=== PATIENT | male | born 1955 | race Caucasian/White ===

== ENCOUNTER 2016-11-12 07:30 | Inpatient (IN) | payer BC ==
--- NOTE | 2016-11-06 21:25 | HP ---
HISTORY AND PHYSICAL: DATE OF ADMISSION/SURGERY: 11/12/16 DATE OF OFFICE VISIT: 11/06/16 SURGEON: Lubna Avila MD PROCEDURE: Left total hip arthroplasty. CHIEF COMPLAINT: Left hip pain. HISTORY OF PRESENT ILLNESS: Mr. Davenport is a 60-year-old gentleman with complaints of left hip pain. He has failed conservative management and has elected to proceed with a left total hip arthroplasty, which is scheduled for . PAST MEDICAL HISTORY: Osteoarthritis. PAST SURGICAL HISTORY: Tonsillectomy. CURRENT MEDICATIONS: 1. Adderall. 2. Bulger. ALLERGIES: No known drug allergies. FAMILY HISTORY: Diabetes and heart disease. SOCIAL HISTORY: He is a 60-year-old gentleman. He is . 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 He does not smoke, use drugs. Uses occasional alcohol. REVIEW OF SYSTEMS: A complete 14-point review of systems was reviewed with the patient. All was negative or noncontributory. PHYSICAL EXAMINATION GENERAL: He is well developed, well nourished, in no acute distress. VITAL SIGNS: He stands 5 feet 8 inches tall, weighs 190 pounds. His blood pressure is 115/90. His heart rate is 100. HEENT: Normocephalic, atraumatic. NECK: Supple. No palpable lymph nodes. Trachea is midline. PULMONARY: Lungs are clear to auscultation bilaterally. No wheezes, rhonchi, or rales. CARDIO: Regular rate and rhythm. Strong S1, S2. No murmurs, gallops, or rubs. No peripheral edema. ABDOMEN: Soft, nontender, nondistended. NEUROLOGICAL: He is alert and oriented x3. Cranial nerves II through XII are intact. MUSCULOSKELETAL: Left lower extremity: The skin is intact. He walks with an antalgic type gait favoring his left hip. He has limited range of motion with internal and external rotation of the left hip, 2+ dorsalis pedis pulses. His lower extremity muscle group strengths are intact at 5/5. ASSESSMENT AND PLAN: Mr. Davenport is a 60-year-old gentleman with complaints of left hip pain. He has failed conservative management and has elected to proceed with a left total hip arthroplasty, which is scheduled for 11/12/[address] Avila discussed the risks and benefits of the surgery at today's visit and all of his questions were answered. Percocet, Colace, and Coumadin were sent to his pharmacy for postoperative pain control and DVT prophylaxis. He will see Dr. Avila back in 10 to 14 days after the surgery. KASANDRA LEMONS [id number]/[facility] #: [id number] MARYANNE
--- NOTE | 2017-01-03 15:33 | HP ---
HISTORY AND PHYSICAL: DATE OF ADMISSION/SURGERY: 01/07/17 DATE OF OFFICE VISIT: 01/03/17 SURGEON: Lubna Avila MD PROCEDURE: Left total hip arthroplasty. CHIEF COMPLAINT: Left hip pain. HISTORY OF PRESENT ILLNESS: Mr. Davenport is a 61-year-old gentleman with complaints of left hip pain secondary to osteoarthritis. He has failed conservative management and has elected to proceed with a left total hip arthroplasty, which is scheduled for 01/07/[address] Avila. PAST MEDICAL HISTORY: Osteoarthritis. PAST SURGICAL HISTORY: Tonsillectomy. CURRENT MEDICATIONS: 1. Adderall. 2. Melvern. ALLERGIES: None. FAMILY HISTORY: Diabetes and heart disease. SOCIAL HISTORY: He is a 61-year-old gentleman. He is . He does not smoke or use drugs. He uses occasional alcohol. REVIEW OF SYSTEMS: A complete 14-point review of systems was reviewed with the patient, all was negative or noncontributory. PHYSICAL EXAMINATION GENERAL: He is well-developed, well-nourished, in no acute distress. VITAL SIGNS: He stands 5 feet 8 inches tall, weighs 190 pounds. His blood pressure is 137/81 and his heart rate 80. HEENT: Normocephalic, atraumatic. NECK: Supple. No palpable lymph nodes. Trachea is midline. PULMONARY: The lungs are clear to auscultation bilaterally. No wheezes, rhonchi, or rales. CARDIO: Regular rate and rhythm. Strong S1, S2. No murmurs, gallops, or rubs. ABDOMEN: Soft, nontender, and nondistended. MUSCULOSKELETAL: Left lower extremity, the skin is intact. He has limited range of motion with internal and external rotation of the left hip. His lower extremity muscle group strengths are intact at 5/5. He has 2+ dorsalis pedis pulses and intact sensation. NEUROLOGICAL: He is alert and oriented x3. Cranial nerves II through XII are intact. ASSESSMENT AND PLAN: Mr. Davenport is a 61-year-old gentleman with continued complaints of left hip pain. He has failed conservative management and has elected to proceed with the left total hip arthroplasty, rescheduled for with Dr. Avila. Dr. Avila discussed the risks and the benefits of the surgery at today's visit and all of his questions were answered. Coumadin, Percocet, and Colace were sent to his pharmacy for postoperative pain control and DVT prophylaxis. He will see Dr. Avila back 2 weeks after the surgery. KASANDRA LEMONS [id number]/[facility] #: [id number] MTDPrimo
[2017-01-07] MEDS ORDERED: Famotidine IV* 10 MG/ML 2 ML (20 mg) IV ONE (06:00)
[2017-01-07] MEDS ORDERED: Buffered Lidocaine 1% SYR 3ML* 3 ML/SYR SYRINGE INTRADERM ONE (06:00)
[2017-01-07] MEDS ORDERED: ceFAZolin 2 GM PREMIX(*) 2 GM/50 ML BAG IVPB ONE (06:08)
[2017-01-07] MEDS ORDERED: Famotidine IV* 10 MG/ML 2 ML (20 mg) ONE (06:08)
[2017-01-07] MEDS ORDERED: fentaNYL* 50 MCG/ML 2 ML VIAL (100 MCG VIAL) ONE (07:27)
[2017-01-07] MEDS ORDERED: KETAMINE HCL* 50 MG/ML 10 ML VIAL ONE (07:27)
[2017-01-07] MEDS ORDERED: Midazolam* 1 MG/ML 5 ML VIAL (5 MG) ONE (07:28)
[2017-01-07] MEDS ORDERED: Morphine PF AMP (0.5MG/ML)* 5 MG/10 ML AMP ONE (07:28)
[2017-01-07] MEDS ORDERED: Dexamethasone IV* 4 MG/ML 1 ML (4 MG) ONE (08:15)
[2017-01-07] MEDS ORDERED: Lidocaine 2% PF * 5 ML VIAL ONE (08:15)
[2017-01-07] MEDS ORDERED: Ondansetron INJ* 2 MG/ML VIAL ONE (08:15)
[2017-01-07] MEDS ORDERED: Propofol* 10 MG/ML 20 ML BTL IV PUSH ONE ×2 (08:15→09:10)
[2017-01-07] MEDS ORDERED: Ketorolac INJ* 30 MG/ML 1 ML VIAL ONE (08:15)
[2017-01-07] MEDS ORDERED: DiMENhydriNATE IV* 50 MG/ML VIAL IV PUSH PRN (08:25)
[2017-01-07] MEDS ORDERED: Acetaminophen TAB* 325 MG PO PRN ×2 (08:25→09:55)
[2017-01-07] MEDS ORDERED: Gabapentin CAP(*) 300 MG PO ONE (08:26)
[2017-01-07] MEDS ORDERED: EPHEDrine (Pressors)* 50 MG/ML VIAL ONE (08:32)
[2017-01-07] MEDS ORDERED: Nalbuphine* 20 MG/ML 1 ML VIAL IV PRN (08:41)
[2017-01-07] MEDS ORDERED: Naloxone* 0.4 MG/ML 1 ML VIAL IV PRN (08:41)
[2017-01-07] MEDS ORDERED: oxyCODONE/Acetamin 5/325 MG* TAB PO PRN ×2 (08:41→09:55)
[2017-01-07] MEDS ORDERED: Ondansetron INJ* 2 MG/ML VIAL IV PRN (08:41)
[2017-01-07] MEDS ORDERED: Ibuprofen TAB* 600 MG PO SCH (09:00)
--- NOTE | 2017-01-07 09:16 | RAD ---
Indication: Left hip bipolar arthroplasty Single image of the pelvis and left hip demonstrates femoral reamer and sizing of the left hip prosthesis. IMPRESSION: Intraoperative control films for left hip replacement.
[2017-01-07] MEDS ORDERED: Gabapentin CAP(*) 300 MG ONE (09:53)
[2017-01-07] MEDS ORDERED: Bisacodyl SUPP* 10 MG SUPP PR PRN (09:55)
[2017-01-07] MEDS ORDERED: Ondansetron TAB* 4 MG PO PRN (09:55)
[2017-01-07] MEDS ORDERED: diPHENhydraMINE IV* 50 MG/ML 1 ml VIAL (BENADRYL) IV PRN (09:55)
[2017-01-07] MEDS ORDERED: oxyCODONE TAB* 5 MG TAB PO PRN (09:55)
[2017-01-07] MEDS ORDERED: Polyethylene Glycol 3350* 17 GM PACKET PO PRN (09:55)
[2017-01-07] MEDS ORDERED: Morphine INJ* 2 MG/ML 1 ML SYRINGE IV PRN (09:55)
[2017-01-07] MEDS ORDERED: ceFAZolin 1 GM in Dextrose (*) 1 GM/50 ML BAG IVPB SCH (10:00)
[2017-01-07] MEDS ORDERED: DiMENhydriNATE IV* 50 MG/ML VIAL ONE (10:23)
[2017-01-07] MEDS ORDERED: HYDROmorphone* 1 MG/ML 1 ML SYR ONE (10:47)
[2017-01-07] MEDS: HYDROmorphone* 1 MG/ML 1 ML SYR IV PRN ×3 (10:48→11:30)
--- NOTE | 2017-01-07 10:51 | RAD ---
INDICATION: Left total hip replacement COMPARISON: Left hip September 23, 2016 TECHNIQUE: AP and frog-leg imaging of the left hip was performed FINDINGS: Bones: There is left hip arthroplasty. Both femoral and tibial components appear well seated. Joint spaces: Left hip arthroplasty. Other: None IMPRESSION: INTERVAL LEFT HIP ARTHROPLASTY. NO EVIDENCE OF HARDWARE FAILURE
--- NOTE | 2017-01-07 10:53 | RAD ---
INDICATION: Left hip arthroplasty COMPARISON: Left hip September 23, 2016 TECHNIQUE: A single AP view of the pelvis is submitted. FINDINGS: Osseous structures: There is left hip arthroplasty. The prosthesis appears well seated. There is moderate osteoarthritis about the right hip appearing unchanged. SI joints and symphysis: Intact Soft tissues: Negative Other: None IMPRESSION: LEFT HIP ARTHROPLASTY. MODERATE OSTEOARTHRITIS RIGHT HIP
[2017-01-07] MEDS ORDERED: oxyCODONE/Acetamin 5/325 MG* TAB ONE (11:03)
[2017-01-07] MEDS: oxyCODONE/Acetamin 5/325 MG* TAB PO PRN ×2 (11:04→11:05)
[2017-01-07] MEDS: ceFAZolin 1 GM in Dextrose (*) 1 GM/50 ML BAG IVPB SCH ×2 (14:52→22:12)
[2017-01-07] MEDS: Ibuprofen TAB* 600 MG PO SCH ×2 (15:29→21:33)
[2017-01-07] MEDS ORDERED: Warfarin TAB(*) 6 MG PO ONE (17:00)
[2017-01-07] MEDS: Docusate CAP* 100 MG PO SCH (21:32)
[2017-01-08] MEDS: oxyCODONE/Acetamin 5/325 MG* TAB PO PRN ×5 (03:26→21:33)
[2017-01-08] MEDS: ceFAZolin 1 GM in Dextrose (*) 1 GM/50 ML BAG IVPB SCH (05:44)
[2017-01-08 05:59] LABS: Hematocrit 35 % (42-52)
[2017-01-08 06:25] LABS: BUN/Creatinine Ratio 18.3 (8-20); Calcium 8.5 mg/dL (8.6-10.3); EGFR African American 122.8 (>60); EGFR Non-African American 95.5 (>60); Potassium 4.1 mmol/L (3.5-5.0)
--- NOTE | 2017-01-08 07:40 | PN ---
Progress Note - Progress Note SOAP: Subjective: Pt. is alert, pain is controlled. Objective: LLE - thigh soft, dressing c/d/i. distally +df/pf, full sens lt, 2+ dp pulse. Vital Signs: Temp Pulse Resp BP Pulse Ox 98.3 F 67 16 107/67 95 01/08/17 04:00 01/08/17 04:00 01/08/17 05:26 01/08/17 04:00 01/08/17 04:00 Laboratory Results - last 24 hr 01/08/17 01/08/17 01/08/17 05:46 05:46 05:46 Hgb 12.0 L Hct 35 L INR (Anticoag Therapy) 1.09 Sodium 131 L Potassium 4.1 Chloride 103 Carbon Dioxide 23 Anion Gap 5 BUN 15 Creatinine 0.82 Est GFR ( Amer) 122.8 Est GFR (Non-Af Amer) 95.5 BUN/Creatinine Ratio 18.3 Glucose 117 H Calcium 8.5 L Assessment: 61 yo M pod 1 s/p LTHA Plan: wbat with post hip precautions pt/ot plan home with vns tomorrow 8 mg coumadin tonight with lovenox bridge
--- NOTE | 2017-01-08 08:14 | OP ---
OPERATIVE REPORT: DATE OF OPERATION: 01/07/17 DATE OF : 55 SURGEON: Lubna Avila MD LICENSED REAL ESTATE BROKER: KASANDRA Flaherty Ms. was used throughout the procedure for preparation of the leg, retraction, manipulation of the leg, and wound closure. ANESTHESIOLOGIST: Yamileth Hall MD ANESTHESIA: Spinal. PRE-OP DIAGNOSIS: Severe end-stage degenerative osteoarthritis of the left hip joint. POST-OP DIAGNOSIS: Severe end-stage degenerative osteoarthritis of the left hip joint. OPERATIVE PROCEDURE: Left total hip arthroplasty. COMPLICATIONS: None. ESTIMATED BLOOD LOSS: 200 cc. SPECIMEN: Femoral head and acetabular reaming, sent to pathology. HARDWARE USED: This is uncemented Frances total hip hardware. A 56 Tritanium Cluster Hole Shell wa s used along with a 30-mm cancellous bone screw. For the femur, an Accolade TMZF, size 4.5 with a 1 32-degree neck angle. For the femoral head, a 36, -2.5 Biolox delta ceramic V40 femoral head. BRIEF HISTORY/INDICATIONS: Mr. Davenport is a 61-year-old gentleman with years of increasingly severe le ft hip pain. Radiographs showed severe end-stage arthritis with [id number] contact. He failed co nservative treatment with antiinflammatories, pain medications, physical therapy, and intraarticular injection. He elected to undergo left total hip arthroplasty due to continued pain and decreased q uality of life. Informed consent was obtained from the patient. He understood the risks of the pro cedure included, but were not limited to bleeding, infection, damage to nearby structures, continued pain, need for further surgery, intraoperative fracture, nerve palsy, hardware failure or loosening , dislocation, leg length discrepancy, stroke, heart attack, blood clot, and . He wished to pr oceed. INTRAOPERATIVE FINDINGS: Intraoperatively, the patient was noted to have severe end-stage arthritis with complete loss of cartilage in the femoral head and acetabulum. He did have the anterior-infer ior osteophyte formation along the acetabulum. DESCRIPTION OF PROCEDURE: Mr. Dalton was identified in the preanesthesia unit. His left lower extremi ty was marked as the correct operative side. Informed consent was signed and placed in the chart. The patient was taken to the operating room and placed under spinal anesthesia. A Pereira catheter wa s placed. The patient was placed in the right lateral decubitus position on the peg board. All bon y prominences were well padded. The lower extremity was prepped and draped in the usual sterile fas hion. Preop time-out was made to correctly identify the patient, side, and site. Appropriate perio perative antibiotics were given within 1 hour of incision. A 12 cm posterior hip incision was made with a 10 blade and carried down to the lateral fascial laye r. Lateral fascial layer was incised in line with the skin incision. A Charnley retractor was plac ed. The piriformis and conjoined tendons were identified. These were elevated off the posterolater al femur using electrocautery and tagged with two #5 Ethibond's. Electrocautery was then used to ma ke a standard posterolateral capsular flap and this was also tagged with two #5 Ethibond's. The hip was carefully dislocated. Lesser troch to the center of the femoral head measured 55 mm. A n oscillating saw was used to make the appropriate femoral neck cut. The femoral head was sent to p athology. The femur was carefully retracted anteriorly. After appropriate placement of retractors, the acetab ulum was easily visualized. A long-handled knife was used to remove any remaining labrum from the a cetabular rim. The acetabulum was sequentially reamed up to a size 55. A good bleeding bone bed wa s obtained. The 55 trial had excellent fit. A Tritanium hemispherical cluster hole shell, size 56 E was chosen. This was impacted into the acetabulum without difficulty. Appropriate abduction angle and anteversion were chosen. There was good stability of the cup. One 30 mm cancellous bone screw was placed in the superoposterior quadrant for extra stability. A Trident X3 0 degree polyethylene insert 36C was chosen as the final insert. This was locked into position in the acetabulum. Stability of the insert was checked and rechecked and noted to be stabl e. Attention was next turned to preparation of the proximal femur. A canal finder was used to enter th e proximal femur. The femoral canal was then sequentially broached up to a size 4.5. The 4.5 broac h had good fit and appropriate anteversion. A 132- degree neck trial with a 36 +0 femoral head tria l was chosen. Then hip was reduced and taken through range of motion. The hip was stable in all po sitions. There was appropriate leg lengths and good soft tissue tension. The hip was carefully dislocated. All trials were removed. Final implant was an Accolade TMZF, siz e 4.5 with a 132-degree neck. This was impacted into the femoral canal without difficulty. There w as good stability. The stem did sit up approximately 2 mm. The Biolox delta ceramic V40 femoral he ad was chosen 36, -2.5. This was impacted onto the femoral neck. Lesser troch to the center of the femoral head final measurement was 55 mm. The hip was reduced and taken through a range of motion. The hip was stable in all positions. The hip was copiously irrigated with sterile saline. Previously tagged capsule and tendons were marc pproximated to the posterolateral femur through 2 trochanteric drill holes. The lateral fascial lay er was closed using the interrupted #1 Vicryl's. The rest of the incision was closed in a layered f ashion using 0 and 2-0 Vicryl's. Skin was closed using running 3-0 Monocryl suture and Dermabond. S terile Adaptic, 4x4s, and paper tapes were used to cover the incision. The patient's anesthesia was reversed without difficulty. He was taken to the PACU in stable condit ion. Intended weightbearing will be weightbearing as tolerated with posterior hip precautions. Int ended DVT prophylaxis will be Coumadin with a Lovenox bridge. [id number]/[facility] #: [id number]
[2017-01-08] MEDS: Enoxaparin(*) 30 MG/0.3 ML SYR SUBCUT SCH (08:27)
[2017-01-08] MEDS: Amphetamine MIXED SALT TAB* 10 MG TAB PO SCH ×2 (08:28→09:13)
[2017-01-08] MEDS: Docusate CAP* 100 MG PO SCH ×2 (08:28→21:33)
[2017-01-08] MEDS ORDERED: Warfarin TAB(*) 4 MG PO ONE (17:00)
[2017-01-08] MEDS: Magnesium Hydroxide LIQ* 30 ML UDC PO PRN (21:32)
[2017-01-09] MEDS: oxyCODONE/Acetamin 5/325 MG* TAB PO PRN ×4 (01:47→13:39)
[2017-01-09] MEDS: Magnesium Hydroxide LIQ* 30 ML UDC PO PRN (05:56)
[2017-01-09 06:36] LABS: Hematocrit 35 % (42-52); Hemoglobin 11.8 g/dl (14.0-18.0)
[2017-01-09] MEDS: Enoxaparin(*) 30 MG/0.3 ML SYR SUBCUT SCH (08:17)
[2017-01-09] MEDS: Docusate CAP* 100 MG PO SCH (08:18)
[2017-01-09] MEDS: Amphetamine MIXED SALT TAB* 10 MG TAB PO SCH (08:19)
--- NOTE | 2017-01-09 08:27 | PN ---
Progress Note - Progress Note SOAP: Subjective: 61 y/o male s/p L ASHLEIGH 01/07/[address] Avila. Patient reports feeling well, working well with PT, would like for D/C today. VSS, afebrile overnight. Objective: [General- Well appearing, NAD MSK- Incision c/d/i, no drainage noted, minimal erythema around incision. + DF/ PF L LE. Easily rises from chair to standing position. ] Vital Signs Temp 98.0 F 01/09/17 07:47 Pulse 67 01/09/17 07:47 Resp 16 01/09/17 08:00 BP 122/61 01/09/17 07:47 Pulse Ox 95 01/09/17 07:47 Intake & Output 01/08/17 01/09/17 01/09/17 18:59 06:59 18:59 Intake Total 1750 1800 Output Total 1200 1550 Balance 550 250 Intake: IV Fluids 1030 LR 1030 IVPB 55 ABX - CEFAZOLIN 55 Oral 665 1800 Output: Urine 1200 1550 Laboratory Results - last 24 hr 01/09/17 01/09/17 05:31 05:31 Hgb 11.8 L Hct 35 L INR (Anticoag Therapy) 1.48 H Assessment: [61 y/o male s/p L ASHLEIGH 01/07/[address] Avila] Plan: [- D/C today to home after PT - Lovenox today, coumadin dosing - Follow up with Dr. Avila within 10 days ] Active Medications Generic Name Dose Route Start Last Admin Trade Name Freq PRN Reason Stop Dose Admin Acetaminophen 650 mg 01/07/17 09:55 Tylenol Tab* PO Q4H PRN PAIN OR TEMPERATURE Amphetamine/Dextroamphetamine 30 mg 01/08/17 09:00 01/09/17 08:19 Adderall Tab* PO Not Given QAM CASI Bisacodyl 10 mg 01/07/17 09:55 Dulcolax Supp* MI DAILY PRN constipation Diphenhydramine HCl 12.5 mg 01/07/17 09:55 01/07/17 19:46 Benadryl Iv* IV 12.5 mg Q6H PRN Administration PRURITIS Docusate Sodium 100 mg 01/07/17 21:00 01/09/17 08:18 Colace Cap* PO 100 mg BID CASI Administration Enoxaparin Sodium 30 mg 01/08/17 08:00 01/09/17 08:17 Lovenox(*) SUBCUT 30 mg Q24H CASI Administration Lactated Ringer's 1,000 mls @ 100 mls/hr 01/07/17 10:00 01/07/17 22:12 Lactated Ringers 1000 Ml Bag* IV 100 mls/hr PER RATE CASI Administration Lactulose 30 ml 01/07/17 09:55 Lactulose* PO Q6H PRN constipation Magnesium Hydroxide 30 ml 01/07/17 09:55 01/09/17 05:56 Milk Of Magnesia Liq* PO 30 ml Q6H PRN Administration constipation Morphine Sulfate 2 mg 01/07/17 09:55 Morphine Inj (Syringe)* IV Q2H PRN PAIN Ondansetron HCl 4 mg 01/07/17 09:55 Zofran Tab* PO Q6H PRN NAUSEA Oxycodone HCl 10 mg 01/07/17 09:55 Roxycodone Tab* PO Q4H PRN SEVERE PAIN Oxycodone/Acetaminophen 1 tab 01/07/17 09:55 Percocet 5/325 Tab* PO Q3H PRN PAIN - MODERATE Oxycodone/Acetaminophen 2 tab 01/07/17 09:55 01/09/17 05:56 Percocet 5/325 Tab* PO 2 tab Q3H PRN Administration PAIN - MODERATE Pharmacy Profile Note 1 note 01/07/17 17:00 01/08/17 16:58 Coumadin Daily Reminder* FOLLOW UP 1 note 1700 CASI Administration Polyethylene Glycol/Electrolytes 17 gm 01/07/17 09:55 Miralax* PO DAILY PRN Constipation
[2017-01-09 15:40] VITALS: BP 111/70
--- NOTE | 2017-01-09 23:23 | DS ---
DISCHARGE SUMMARY: DATE OF ADMISSION: 01/07/17 DATE OF DISCHARGE: 01/09/17 ATTENDING PROVIDER: Lubna Avila MD (DICTATED BY KASANDRA DESIR) CHIEF COMPLAINT: 1. Left hip osteoarthritis. 2. Osteoarthritis, generalized. DISCHARGE DIAGNOSES: 1. Left total hip arthroplasty. 2. Generalized osteoarthritis. PROCEDURE: 1. Left total hip arthroplasty. CONSULTATIONS: 1. Physical Therapy. 2. Occupational Therapy. BRIEF HISTORY: Mr. Davenport is a very pleasant 61-year-old gentleman with severe end- stage osteoarthritis of the left hip, who failed conservative treatment and elected to undergo a left total hip arthroplasty on 01/07/[address] Lubna Avila. HOSPITAL COURSE: Mr. Davenport was admitted to [facility] on 01/07/17 where he underwent a left total hip arthroplasty. Postoperatively, he recovered on the surgical short-stay unit. On postoperative day 2, his Pereira was removed and the patient was voiding on his own without difficulty. He advanced to regular diet and his pain was controlled with p.o. Percocet. He was restarted on his home medications. His labs and vital signs remained stable. He was able to weight bear as tolerated on the left lower extremity and was advancing appropriately with physical therapy and occupational therapy. His DVT prophylaxis was managed with Lovenox and Coumadin. By postoperative day 2, he was orthopedically and medically stable for discharge to go home with home services. PHYSICAL EXAMINATION: General: Well-appearing, no acute distress, alert and oriented x3. Vital Signs: Temperature 98.0, pulse 67, respirations 16, blood pressure 122/61, pulse oxygenation 95% on room air. Left extremity shows the incision is clean, dry, and intact with no signs of drainage or erythema around the incision site. Minimal ecchymosis. The patient able to go from a sitting to standing position without difficulty. Neurovascularly intact. Positive dorsiflexion and plantar flexion, left lower extremity. DIAGNOSTIC STUDIES/LAB DATA: On the date of discharge, H and H of 11.8 and 35 with an INR of 1.48. Radiographs: Postoperative radiograph of the left hip demonstrated a left total hip arthroplasty and satisfactory replacement. DISCHARGE MEDICATIONS: 1. Adderall 1 tablet p.o. q.a.m. 2. Colace 100 mg p.o. b.i.d. 3. Percocet 5/325 mg 1 to 2 tablets every 3 hours as needed for pain. 4. Coumadin 2 mg tablets, 1 to 3 tablets as directed at 5 p.m. per physician orders. CONDITION ON DISCHARGE: Stable. DISCHARGE INSTRUCTIONS: Mr. Davenport is a very pleasant 61-year-old gentleman, postoperative day 2 status post left total hip arthroplasty, which was uncomplicated. He is orthopedically and medically stable for discharge to go home with home services. His labs and vital signs are stable. He will restart his home medications. He will take 6 mg of Coumadin night, 6 mg on Friday night, and 4 mg on Friday and Friday nights, and will have a recheck of his INR on Friday. He will have INR draws on Mondays and with visiting home nurse services. He will remain weight-bearing as tolerated on the left lower extremity. He will have home physical therapy twice a week. He will take Percocet as needed for pain control. He will take Colace up to 3 times a day for constipation. He will follow up with Dr. Avila in approximately 10 to 14 days for an incision check and suture removal. He was instructed to go immediately to the ER should he develop chest pain or shortness of breath. Should he develop fever, increasing pain, or redness, he is to call the office immediately. KASANDRA DESIR [id number]/[facility] #: [id number] MTDPrimo
== END 2017-01-09 16:20 | disposition home health service (06) | DRG 301 ==
LOC: AA 01-07 06:10 → SSU 01-07 11:58
PROVIDERS: ADMIT Orthopaedic Surgery Adult Reconstructive Orthopaedic Surgery; ATTEND Orthopaedic Surgery Adult Reconstructive Orthopaedic Surgery
PROC: 0SRB04A Replacement of Left Hip Joint with Ceramic on Polyethylene Synthetic Substitute, Uncemented, Open Approach (ICD-10-PCS; principal; 2017-01-07 07:30)
DX: M16.12 Unilateral primary osteoarthritis, left hip (principal); F41.9 Anxiety disorder, unspecified; M15.9 Polyosteoarthritis, unspecified; M25.752 Osteophyte, left hip
CPT/HCPCS: 36415; 71020; 72170; 80048; 85014; 85018; 85610; 88304; 88311; 94760; A9270-GY; C1713; C1776; J0690; J1100; J1170; J1200; J1240; J1650; J1885; J2250; J2300; J2405; J2704; J3010

== ENCOUNTER 2022-06-27 07:30 | Observation (INO) ==
[~2022-06-27 07:30] MED LIST: Buffered Lidocaine 1% SYRIN 1 ml INTRADERM ONE; Lactated Ringers 1000 ml BAG 1,000 ML IV SCH
[2022-06-27] MEDS ORDERED: Ketamine HCL 50 mg/ml 10 ml VIAL (500 MG) ONE (10:11)
[2022-06-27] MEDS ORDERED: Lidocaine 2% PF 5 ML VIAL ONE (10:12)
[2022-06-27] MEDS ORDERED: Propofol 10 MG/ML 20 ML BTL ONE ×2 (10:12→10:47)
[2022-06-27] MEDS ORDERED: ceFAZolin 2 GM PREMIX 2 GM/50 ML BAG ONE (10:57)
[2022-06-27] MEDS ORDERED: Ondansetron 4 mg VIAL 2 MG/ML 2 ml VIAL ONE ×2 (11:16→13:40)
[2022-06-27] MEDS ORDERED: Ondansetron 4 mg VIAL 2 MG/ML 2 ml VIAL IV PRN ×2 (12:08→14:34)
[2022-06-27] MEDS ORDERED: Naloxone 0.4 mg VIAL 0.4 mg/ml 1 ml VIAL IV PRN (12:08)
[2022-06-27] MEDS ORDERED: Acetaminophen IV 1 GM/100ML 1,000 MG/100 ML BAG IV PRN (12:08)
[2022-06-27] MEDS ORDERED: fentaNYL 100 mcg/2 ml 50 MCG/ML VIAL IV PRN (12:08)
[2022-06-27] MEDS ORDERED: ROPIVACAINE 5 MG/ML 30 ML BTL (0.5%) ONE (12:39)
[2022-06-27] MEDS ORDERED: Midazolam 5 mg/5 ml VIAL 1 mg/ml 5 ml VIAL (5 mg) ONE (12:51)
[2022-06-27] MEDS ORDERED: Sterile Water for Inj 10 ML ONE (13:14)
[2022-06-27] MEDS ORDERED: Glycopyrrolate IV 0.2 MG/ML 1 ML VIAL ONE (13:29)
[2022-06-27] MEDS ORDERED: Phenylephrine 40 mcg/mL 10mL (400mcg) SYRINGE ONE (13:30)
[2022-06-27] MEDS ORDERED: Acetaminophen IV 1 GM/100ML 1,000 MG/100 ML BAG IV ONE (13:40)
[2022-06-27] MEDS ORDERED: Lactulose 30 ml UDC PO PRN (14:34)
[2022-06-27] MEDS ORDERED: Morphine 2 MG/ML SYRINGE IV PRN (14:34)
[2022-06-27] MEDS ORDERED: Ondansetron ODT 4 mg TAB 4 MG TAB PO PRN (14:34)
[2022-06-27] MEDS ORDERED: Magnesium Hydroxide LIQ 30 ML UDC PO PRN (14:34)
[2022-06-27] MEDS ORDERED: Lactated Ringers 1000 ml BAG 1,000 ML IV SCH (15:00)
[2022-06-27] MEDS ORDERED: HYDROmorphone 1 MG/1 ML SYRINGE ONE (15:41)
[2022-06-27] MEDS: HYDROmorphone 1 MG/1 ML SYRINGE IV PRN ×5 (15:44→16:38)
[2022-06-27] MEDS ORDERED: fentaNYL 100 mcg/2 ml 50 MCG/ML VIAL ONE (17:54)
[2022-06-27] MEDS: Magnesium Hydroxide LIQ 30 ML UDC PO SCH (20:25)
[2022-06-27] MEDS: ceFAZolin 1 GM ADVAN 1 GM in NS 0.9% 50 ML 50 ML IVPB SCH (21:27)
[2022-06-28] MEDS: ceFAZolin 1 GM ADVAN 1 GM in NS 0.9% 50 ML 50 ML IVPB SCH ×2 (05:03→11:58)
[2022-06-28 06:19] LABS: Hematocrit 38 % (42-52); Mean Platelet Volume 7.5 fL (7.4-10.4); Platelet Count 249 10^3/uL (150-450)
[2022-06-28 06:42] LABS: Calcium 8.4 mg/dL (8.6-10.3); Potassium 4.2 mmol/L (3.5-5.0); eGFR CKD-EPI 90.6 (>60)
[2022-06-28] MEDS: Magnesium Hydroxide LIQ 30 ML UDC PO SCH (07:46)
[2022-06-28] MEDS ORDERED: Vitamin THERAPEUTIC TAB PO SCH (09:00)
[2022-06-28 12:51] VITALS: BP 107/57
== END 2022-06-28 13:59 | disposition home or self-care (01) ==
LOC: AA 10:59 → INTOOBSV 10:59 → SSU 18:50
PROVIDERS: ADMIT Orthopaedic Surgery Adult Reconstructive Orthopaedic Surgery; ATTEND Orthopaedic Surgery Adult Reconstructive Orthopaedic Surgery